=== PATIENT | female | born 1950 | race African-American/Black ===

== ENCOUNTER 2016-06-30 05:21 | Emergency (ER) | payer OTHER ==
[2016-06-30] MEDS ORDERED: IBUPROFEN 400 MG TABLET (FP) PO ONE ×2 (06:22→06:30)
[2016-06-30 06:25] VITALS: BP 174/73; PULSE 99; TEMP 98.2; BMI 34.3
--- NOTE | 2016-06-30 06:25 | PDOC ---
*Physical Exam - Vital Signs Last Vital Signs Temp Pulse Resp BP Pulse Ox 98.2 F 99 H 18 174/73 97 06/30/16 06:14 06/30/16 06:14 06/30/16 06:14 06/30/16 06:14 06/30/16 06:14 ED Treatment Course - RADIOLOGY Radiology Studies Ordered: Category Date Time Status ANKLE & FOOT-RIGHT* [RAD] Stat Radiology 06/30/16 06:14 Ordered Medical Decision Making - Medical Decision Making 06/30/16 06:25 agree with care from DANA Chang *DC/Admit/Observation/Transfer Diagnosis at time of Disposition: Fracture of distal fibula - Discharge Dispostion Disposition: HOME Condition at time of disposition: Stable - Prescriptions Prescriptions: Oxycodone HCl/Acetaminophen [Percocet 5-325 mg Tablet] 1 - 2 tab PO Q4H #10 tablet MDD 4 - Referrals Referrals: Ashutosh Luna MD [Staff Physician] - - Patient Instructions Printed Discharge Instructions: DI for Ankle Fracture Additional Instructions: Rest, ice to area on and off for 15 minutes 4-6 times a day Avoid heavy lifting or exercise until pain and swelling is resolved or until further directed Keep area highly elevated to reduce swelling Use splints/Sam wrap as directed, avoid getting wet Followup with orthopedist for appointment to be reevaluated this week May use Percocet one half to one tablet every 4-6 hours for severe pain May use Tylenol for mild pain - Post Discharge Activity Work/School Note: Back to Work
--- NOTE | 2016-06-30 06:33 | PDOC ---
History of Present Illness - History of Present Illness Initial Comments: 06/30/16 06:23 CHIEF COMPLAINT: R ankle pain HISTORY OF PRESENT ILLNESS: 66-year-old female with history of insulin- dependent diabetes and hypertension presents to ER with pain to right ankle status post fall yesterday. Patient states she slipped on ice and hurt her ankle. She states she fell on her bottom but that "that did not hurt so bad". Patient states that she did not lose consciousness or hit any other part of her body. Patient denies fever, nausea, vomiting, diarrhea. No recent travel or sick contacts. PAST MEDICAL HISTORY: as per HPI FAMILY HISTORY: Denies SOCIAL HISTORY:Denies tobacco, alcohol, illicit drug use. SURGICAL HISTORY: Right ankle and left ankle surgery "many years ago " ALLERGIES: No known drug allergies REVIEW OF SYSTEMS General/Constitutional: Denies fever or chills. Denies weakness, weight change. HEENT: Denies change in vision. Denies ear pain or discharge. Denies sore throat. Cardiovascular: Denies chest pain or shortness of breath. Respiratory: Denies cough, wheezing, or hemoptysis. Gastrointestinal: Denies nausea, vomiting, diarrhea or constipation. Denies rectal bleeding. Genitourinary: Denies dysuria, frequency, or change in urination. Musculoskeletal: Pain to right ankle. Denies joint or muscle swelling or pain. Denies neck or back pain. Skin and breasts: Denies rash or easy bruising. Neurologic: Denies headache, vertigo, loss of consciousness, or loss of sensation. PHYSICAL EXAM General Appearance: Well-appearing, appropriately dressed. No apparent distress , no intoxication. HEENT: EOMI, PERRLA. Respiratory/Chest: Lungs CTAB. Cardiovascular: RRR. S1, S2. Vascular Pulses: Dorsalis-Pedis (R): 2+, Dorsalis-Pedis (L): 2+ Gastrointestinal/Abdominal: Normal bowel sounds. Abdomen soft, non-distended. No tenderness or rebound tenderness. Lymphatic: No adenopathy, tenderness. Musculoskeletal/Extremities: Edema and tenderness to R medial malleolus. Mild erythema to anterior aspect of ankle. R foot neurovascularly intact, pulses 2+, no loss of sensation. No tenderness to midline thoracic or lumbar spine. FROM of all other extremities, normal capillary refill. Pelvis Stable. No CVA tenderness. No tenderness to extremities, pedal edema, swelling, erythema or deformity. Integumentary: Appropriate color, dry, warm. No cyanosis, erythema, jaundice or rash Neurologic: hole digger II-XII intact. Fully oriented, alert. Appropriate mood/affect. Motor strength 5/5. No appreciable EOM palsy, facial droop or sensory deficit. <Deanna Chang - Last Filed: 06/30/16 06:50> <Dalia Almanzar - Last Filed: 06/30/16 08:03> - General Chief Complaint: Injury Stated Complaint: INJURY,RT FOOT Time Seen by Provider: 06/30/16 06:17 Past History - Past Medical History Diabetes: Yes HTN: Yes - Immunization History Immunization Up to Date: Yes - Psycho/Social/Smoking Cessation Hx Suicidal Ideation: No Smoking History: Unknown if ever smoked Hx Alcohol Use: No Drug/Substance Use Hx: No Substance Use Type: None <Deanna Chang - Last Filed: 06/30/16 06:50> <Dalia Almanzar - Last Filed: 06/30/16 08:03> - Past Medical History Allergies/Adverse Reactions: Allergies Allergy/AdvReac Type Severity Reaction Status Date / Time No Known Allergies Allergy Verified 06/30/16 06:25 Home Medications: Ambulatory Orders Amlodipine Besylate [Norvasc -] 5 mg PO DAILY 06/30/16 Chlorthalidone [Hygroton -] 25 mg PO DAILY 06/30/16 Glyburide 5 mg PO DAILY 06/30/16 Lisinopril 5 mg PO DAILY 06/30/16 Metformin HCl [Glucophage] 1,000 mg PO BID 06/30/16 Oxycodone HCl/Acetaminophen [Percocet 5-325 mg Tablet] 1 - 2 tab PO Q4H #10 tablet MDD 4 06/30/16 Sitagliptin Phosphate [Januvia -] 100 mg PO DAILY 06/30/16 *Physical Exam - Vital Signs Last Vital Signs Temp Pulse Resp BP Pulse Ox 98.2 F 99 H 18 174/73 97 06/30/16 06:14 06/30/16 06:14 06/30/16 06:14 06/30/16 06:14 06/30/16 06:14 <Deanna Chang - Last Filed: 06/30/16 06:50> - Vital Signs Last Vital Signs Temp Pulse Resp BP Pulse Ox 98.2 F 99 H 18 174/73 97 06/30/16 06:14 06/30/16 06:14 06/30/16 06:14 06/30/16 06:14 06/30/16 06:14 <Dalia Almanzar - Last Filed: 06/30/16 08:03> ED Treatment Course - Medications Given in the ED: ED Medications Discontinued Medications Generic Name Dose Route Start Last Admin Trade Name Louisa PRLloyd Reason Stop Dose Admin Ibuprofen 800 mg 06/30/16 06:22 06/30/16 06:33 Motrin - PO 06/30/16 06:23 800 mg ONCE ONE Administration <Dalia Almanzar - Last Filed: 06/30/16 08:03> Medical Decision Making - Medical Decision Making 06/30/16 06:33 66-year-old female with history of insulin-dependent diabetes and hypertension presents to ER with pain to right ankle status post fall yesterday. Mild erythema to anterior R ankle. Patient states "I think that's probably because I've been icing it." -800 mg ibuprofen -xray R foot & ankle Case discussed in detail with oncoming emergency provider including history, physical exam and ancillary studies. In brief, this patient is being seen in the ED for a chief complaint of: I have completed the initial assessment interview note and have ordered: R foot/ ankle x-ray Pending results: R foot/ankle x-ray Plan for disposition as follows: Oncoming NPA Yohan has assumed care for the patient and will complete the evaluation and treatment. <Deanna Chang - Last Filed: 06/30/16 06:50> *DC/Admit/Observation/Transfer <Deanna Chang - Last Filed: 06/30/16 06:50> - Discharge Dispostion Admit: No <Dalia Almanzar - Last Filed: 06/30/16 08:03> Diagnosis at time of Disposition: Fracture of distal fibula Qualifiers: Encounter type: initial encounter Fracture type: closed Fracture morphology: torus Laterality: right Qualified Code(s): S82.821A - Torus fracture of lower end of right fibula, initial encounter for closed fracture - Discharge Dispostion Disposition: HOME Condition at time of disposition: Stable - Prescriptions Prescriptions: Oxycodone HCl/Acetaminophen [Percocet 5-325 mg Tablet] 1 - 2 tab PO Q4H #10 tablet MDD 4 - Referrals Referrals: Ashutosh Luna MD [Staff Physician] - - Patient Instructions Printed Discharge Instructions: DI for Ankle Fracture Additional Instructions: Rest, ice to area on and off for 15 minutes 4-6 times a day Avoid heavy lifting or exercise until pain and swelling is resolved or until further directed Keep area highly elevated to reduce swelling Use splints/Sam wrap as directed, avoid getting wet Followup with orthopedist for appointment to be reevaluated this week May use Percocet one half to one tablet every 4-6 hours for severe pain May use Tylenol for mild pain - Post Discharge Activity Work/School Note: Back to Work
== END 2016-06-30 08:19 | disposition home or self-care (01) ==
LOC: JER 05:21
PROC: 2W3QX1Z Immobilization of Right Lower Leg using Splint (ICD-10-PCS; principal; 2016-06-30)
DX: S82.821A Torus fracture of lower end of right fibula, initial encounter for closed fracture (principal); W00.9XXA Unspecified fall due to ice and snow, initial encounter; Y93.9 Activity, unspecified; Y92.9 Unspecified place or not applicable; E11.9 Type 2 diabetes mellitus without complications; Z79.4 Long term (current) use of insulin; I10 Essential (primary) hypertension
CPT/HCPCS: 73610-TC-RT; 73630-TC-RT; 99282-25

== ENCOUNTER 2016-12-16 05:40 | Emergency (ER) | payer OTHER ==
[2016-12-16 06:11] VITALS: PULSE 80; TEMP 98; BMI 35.0
--- NOTE | 2016-12-16 07:11 | PDOC ---
Attending Attestation - Resident Resident Name: Gurpreet - ED Attending Attestation I have performed the following: I have examined & evaluated the patient, The case was reviewed & discussed with the resident, I agree w/resident's findings & plan, Exceptions are as noted - HPI HPI: 12/16/16 08:26 66 F with HTN, DM presents to ER with 4 days of cough, nasal congestion, and sore throat. Pt denies any fevers. Cough is dry. Pt denies CP/SOB. No h/o cardiac disease. Denies leg swelling or orthopnea. - Physicial Exam PE: 12/16/16 08:29 GENERAL: Awake, alert, and fully oriented, in no acute distress HEAD: No signs of trauma EYES: PERRLA, EOMI, sclera anicteric, conjunctiva clear ENT: Auricles normal inspection, hearing grossly normal, nares patent, oropharynx clear without exudates. Moist mucosa, TMs wnl NECK: Normal ROM, supple, no lymphadenopathy, JVD, or masses LUNGS: Breath sounds equal, clear to auscultation bilaterally. No wheezes, and no crackles HEART: Regular rate and rhythm, normal S1 and S2, no murmurs, rubs or gallops ABDOMEN: Soft, nontender, normoactive bowel sounds. No guarding, no rebound. No masses EXTREMITIES: Normal range of motion, no edema. No clubbing or cyanosis. No cords, erythema, or tenderness NEUROLOGICAL: Cranial nerves II through XII grossly intact. Normal speech, normal gait SKIN: Warm, Dry, normal turgor, no rashes or lesions noted. - Medical Decision Making 12/16/16 08:31 66 F with cough and nasal congestion x 4 days. Likely viral URI. Will obtain CXR to r/o PNA, though suspicion is low given lack of fever. Also consider HEDY inhibitor induced cough, as pt is on lisinopril. - CXR - Tylenol for sore throat - Pt instructed to discuss halting HEDY inhibitor with PMD if symptoms persist 12/16/16 09:21 CXR negative, pt likely with viral URI. Will DC home with PMD f/u
--- NOTE | 2016-12-16 07:40 | PDOC ---
History of Present Illness - General Chief Complaint: Cold Symptoms Stated Complaint: SORE THROAT,COUGHING Time Seen by Provider: 12/16/16 07:04 History Source: Patient Exam Limitations: No Limitations - History of Present Illness Initial Comments: 12/16/16 07:23 The patient is a 66F with a PMH of DM and HTN who presents to the ED with cold like symptoms. The patient states that her symptoms started Tuesday. She states that it feels like a "bad cold", she has been coughing a lot, and states that she has a sore throat. She is also coughing and it is productive with white phlegm. The coughing and symptoms are worse at night. She has been eating and drinking well, and using the bathroom normally. Surg: ankle surg Allergies: none Social:does not smoke tobacco, drink. She smoke marijuana on the weekends Past History - Past Medical History Allergies/Adverse Reactions: Allergies Allergy/AdvReac Type Severity Reaction Status Date / Time No Known Allergies Allergy Verified 12/16/16 06:05 Home Medications: Ambulatory Orders Amlodipine Besylate [Norvasc -] 5 mg PO DAILY 06/30/16 Chlorthalidone [Hygroton -] 25 mg PO DAILY 06/30/16 Glyburide 5 mg PO DAILY 06/30/16 Lisinopril 5 mg PO DAILY 06/30/16 Metformin HCl [Glucophage] 1,000 mg PO BID 06/30/16 Sitagliptin Phosphate [Januvia -] 100 mg PO DAILY 06/30/16 Diabetes: Yes HTN: Yes - Immunization History Immunization Up to Date: Yes - Psycho/Social/Smoking Cessation Hx Suicidal Ideation: No Smoking History: Never smoked Hx Alcohol Use: No Drug/Substance Use Hx: No Substance Use Type: None Review of Systems - Review of Systems Able to Perform ROS?: Yes Is the patient limited [place] proficient: No Constitutional: No: Chills, Fever HEENTM: Yes: Throat Pain. No: Ear Pain, Ear Discharge, Throat Swelling, Difficulty Swallowing Respiratory: Yes: Shortness of Breath (at night) Cardiac (ROS): No: Chest Pain ABD/GI: No: Nausea, Vomiting, Other (abd pain) Neurological: No: Headache *Physical Exam - Vital Signs Last Vital Signs Temp Pulse Resp BP Pulse Ox 98 F 80 20 173/95 99 12/16/16 06:08 12/16/16 06:08 12/16/16 06:08 12/16/16 06:08 12/16/16 06:08 - Physical Exam General Appearance: Yes: Nourished, Appropriately Dressed. No: Apparent Distress HEENT: positive: Normal Voice, Pharynx Normal, Nasal Congestion, Hearing Grossly Normal, TM Erythema (R sided). negative: Photophobia, Muffled/Hoarse voice, Pharyngeal Erythema, Tonsillar Exudate, Tonsillar Erythema, Rhinorrhea, Sinus Tenderness, Excessive drooling, Thrush Neck: positive: Lymphadenopathy (R). negative: Tender, Decreased range of motion, Stridor, Lymphadenopathy (L), Rigidity Respiratory/Chest: positive: Lungs Clear, Normal Breath Sounds. negative: Chest Tender, Respiratory Distress, Decreased Breath Sounds, Crackles, Rales, Rhonchi, Stridor, Wheezing, Hyperresonant Cardiovascular: positive: Regular Rhythm, Regular Rate, S1, S2. negative: JVD, Diastolic Murmur, Systolic Murmur Gastrointestinal/Abdominal: positive: Normal Bowel Sounds, Flat, Soft. negative : Tender, Distended, Guarding, Rebound, Tenderness Extremity: positive: Normal Inspection, Normal Range of Motion. negative: Coldness, Cyanosis, Swelling Integumentary: positive: Dry, Warm. negative: Clammy, Swelling Neurologic: positive: Fully Oriented, Alert, Normal Mood/Affect, Motor Strength 5/5 Medical Decision Making - Medical Decision Making 12/16/16 07:50 The patient is a 66F with a PMH of DM and HTN who presents to the ED with cold like symptoms. Based on the patient's history and physical exam, I do not think there is a cardiac etiology to her presentation due to the lack of rales, pitting edema, and murmur. This is most likely due to AOM. I have ordered symptomatic treatment and will reassess the patient. 12/16/16 08:31 Attending has seen the patient and would like a CXR ordered. I have done so. CXR pending. 12/16/16 09:21 CXR is negative. 12/16/16 09:24 Patient agrees to take home BP meds. Will discuss BP med change if cough persists for 1-2 more weeks with PCP. Patient agrees for discharge. *DC/Admit/Observation/Transfer Diagnosis at time of Disposition: Upper respiratory tract infection Qualifiers: URI type: unspecified viral URI Qualified Code(s): J06.9 - Acute upper respiratory infection, unspecified; B97.89 - Other viral agents as the cause of diseases classified elsewhere - Discharge Dispostion Disposition: HOME Condition at time of disposition: Improved Admit: No - Patient Instructions Printed Discharge Instructions: How to Avoid a Cold or Flu, DI for Viral Upper Respiratory Infection -- Adult Additional Instructions: Please return to the ER if symptoms persist, worsen, or if new symptoms arise. - Attestations Physician Attestion: 12/16/16 09:26 I, Dr. Gurpreet Liao, attest that this document has been prepared under my direction and personally reviewed by me in its entirety. I further attest, that it accurately reflects all work, treatment, procedures and medical decision -making performed by me.
[2016-12-16] MEDS ORDERED: ACETAMINOPHEN 325 MG TABLET (FP) PO ONE (07:49)
[2016-12-16] MEDS ORDERED: ACETAMINOPHEN 325 MG TABLET (FP) ONE (08:10)
[2016-12-16 09:34] VITALS: BP 164/72
== END 2016-12-16 09:37 | disposition home or self-care (01) ==
LOC: JER 05:40
DX: J06.9 Acute upper respiratory infection, unspecified (principal); I10 Essential (primary) hypertension; E11.9 Type 2 diabetes mellitus without complications; Z79.84 Long term (current) use of oral hypoglycemic drugs
CPT/HCPCS: 71020-TC; 99282-25

== ENCOUNTER 2022-03-02 17:21 | Emergency (ER) | payer OTHER ==
[2022-03-02 17:43] VITALS: BP 154/78; PULSE 71; RESP 19; TEMP 98.6; BMI 31.8
[2022-03-02] MEDS ORDERED: LIDOCAINE 5% TOPICAL PATCH TP ONE (19:13)
[2022-03-02] MEDS ORDERED: METHOCARBAMOL 500 MG TABLET PO ONE (19:13)
[2022-03-02] MEDS ORDERED: KETOROLAC TROMETHAMINE 15 MG/ML VIAL IM ONE (19:13)
[2022-03-02] MEDS ORDERED: KETOROLAC TROMETHAMINE 15 MG/ML VIAL ONE (19:24)
[2022-03-02] MEDS ORDERED: METHOCARBAMOL 500 MG TABLET ONE (19:24)
[2022-03-02] MEDS ORDERED: LIDOCAINE 5% TOPICAL PATCH ONE (19:24)
[2022-03-02] MEDS ORDERED: LIDOCAINE PATCH REMOVAL MC SCH (22:00)
== END 2022-03-02 20:43 | disposition home or self-care (01) ==
LOC: JERFT 17:21
PROC: 3E023GC Introduction of Other Therapeutic Substance into Muscle, Percutaneous Approach (ICD-10-PCS; principal; 2022-03-02)
DX: S93.401A Sprain of unspecified ligament of right ankle, initial encounter (principal); M25.521 Pain in right elbow; M25.561 Pain in right knee; W01.0XXA Fall on same level from slipping, tripping and stumbling without subsequent striking against object, initial encounter
CPT/HCPCS: 71101-TC-RT-FY; 73070-TC-RT-FY; 73130-TC-LT-FY; 73130-TC-RT-FY; 73562-TC-RT-FY; 99284-25